=== PATIENT | female | born 1975 | race Caucasian/White ===

== ENCOUNTER 2018-01-11 16:24 | Emergency (ER) | payer MEDICAID ==
[~2018-01-11] VITALS: Ht 162.6 cm; Wt 108.0 kg
[~2018-01-11 16:24] MED LIST: HYDR-569 PO; NITR100C6 PO; ONDA4TAB6 PO; PHEN-716 PO
[2018-01-11] MEDS ORDERED: LEVO200T PO (16:52)
[2018-01-11] MEDS ORDERED: CITA40TA22 PO (16:52)
[2018-01-11] MEDS ORDERED: HYDROcodone/acetaminophen 10/325mg tab PO ONE (17:55)
[2018-01-11 18:07] VITALS: BP 157/87
== END 2018-01-11 18:12 | disposition home or self-care (01) ==
LOC: ER 16:24
DX: S91.312A Laceration without foreign body, left foot, initial encounter (principal); M25.571 Pain in right ankle and joints of right foot; W22.8XXA Striking against or struck by other objects, initial encounter; Y93.89 Activity, other specified; Y92.89 Other specified places as the place of occurrence of the external cause; Y99.8 Other external cause status; Z87.442 Personal history of urinary calculi; Z90.49 Acquired absence of other specified parts of digestive tract; Z98.84 Bariatric surgery status; Z88.8 Allergy status to other drugs, medicaments and biological substances; Z79.899 Other long term (current) drug therapy
CPT/HCPCS: 12002; 73600; 99284; A6255

== ENCOUNTER 2018-08-03 19:01 | Emergency (ER) | payer MEDICAID ==
[~2018-08-03] VITALS: Ht 162.6 cm; Wt 120.0 kg
[~2018-08-03 19:01] MED LIST changes: +CITA40TA22 PO; +HYDR-4383 PO; -HYDR-569 PO; +LEVO200T PO; -NITR100C6 PO; -ONDA4TAB6 PO; -PHEN-716 PO
[2018-08-03 21:00] VITALS: BP 158/94
[2018-08-03 21:34] LABS: URINE HCG NEGATIVE (NEG)
== END 2018-08-03 22:24 | disposition home or self-care (01) ==
LOC: ER 19:02
DX: N93.8 Other specified abnormal uterine and vaginal bleeding (principal); E03.9 Hypothyroidism, unspecified; Z87.442 Personal history of urinary calculi; Z90.49 Acquired absence of other specified parts of digestive tract; Z98.890 Other specified postprocedural states; Z98.84 Bariatric surgery status; Z88.5 Allergy status to narcotic agent; Z88.1 Allergy status to other antibiotic agents; Z79.899 Other long term (current) drug therapy
CPT/HCPCS: 81025; 99283

== ENCOUNTER 2018-08-26 14:18 | Emergency (ER) | payer MEDICAID ==
[~2018-08-26] VITALS: Ht 162.6 cm; Wt 124.0 kg
[2018-08-26 14:24] VITALS: BP 127/69
[2018-08-26 14:56] LABS: URINE HCG NEGATIVE (NEG)
[2018-08-26 15:00] LABS: CLARITY,URINE CLEAR (Clear); COLOR,URINE YELLOW (Yellow); GLUCOSE, URINE NEGATIVE (Neg); KETONES,URINE NEGATIVE (Neg); LEUKOCYTE ESTERASE ,URINE NEGATIVE (Neg); NITRITES, URINE NEGATIVE (Neg); OCCULT BLOOD,URINE MODERATE (Neg); PROTEIN,URINE NEGATIVE (Neg); UROBILINOGEN,URINE 0.2 E.U/dL (0.2-1.0)
[2018-08-26 15:05] LABS: UA COLLECTION TYPE CLN CATCH MIDSTREAM
[2018-08-26 15:09] LABS: BACTERIA,URINE FEW /HPF (Neg); MUCUS STRANDS FEW /LPF (Neg); RBC,URINE 0-2 /HPF (0-2); SQUAMOUS EPITHELIAL CELL,UR FEW /LPF (FEW); WBC,URINE NONE SEEN /HPF (0-4)
[2018-08-26] MEDS ORDERED: ketorolac tromethamine 15mg/ml inj. IM ONE (16:15)
[2018-08-26] MEDS ORDERED: HYDR-3965 PO (17:11)
== END 2018-08-26 17:20 | disposition home or self-care (01) ==
LOC: ER 14:18
DX: N94.6 Dysmenorrhea, unspecified (principal); Z90.49 Acquired absence of other specified parts of digestive tract; Z98.0 Intestinal bypass and anastomosis status; Z98.890 Other specified postprocedural states; Z88.5 Allergy status to narcotic agent; Z88.1 Allergy status to other antibiotic agents; Z79.899 Other long term (current) drug therapy
CPT/HCPCS: 81001; 81025; 96372; 99283; J1885